=== PATIENT | female | born 1960 | race Caucasian/White ===

== ENCOUNTER → 2019-08-10 09:40 | Outpatient (BNVA) | payer MEDICARE, MEDICAID, SELFPAY | PROVIDERS: PCP Internal Medicine; Referring Provider Internal Medicine; Visit Provider Nurse Practitioner Adult Health | DX: G56.01 Carpal tunnel syndrome, right upper limb (principal); G56.02 Carpal tunnel syndrome, left upper limb | CPT/HCPCS: 95909; 99203; L3908 ==

== ENCOUNTER → 2022-11-27 02:54 | Outpatient (CLI) | payer MEDICARE, MEDICAID, SELFPAY ==
[2022-11-27] MEDS: Normal Saline Flush 10 ML SYR IVP (12:53)
[2022-11-27] MEDS: Gadoterate meglumine 20 ML VIAL IVP (12:53)
--- NOTE | 2022-11-27 13:15 | DI.MRI_ITS ---
Exam(s) MR BRAIN WO/W EXAM: MR BRAIN WO/W CLINICAL HISTORY: NEOPLASM BRONCHUS LLL C34.32 STAGING TECHNIQUE: Multiplanar multisequence MRI of the brain was performed. Both noninfused and contrast i nfused sequences were performed. IV Contrast injected was 13 cc Dotarem. COMPARISON: No exams were available for comparison FINDINGS: CEREBRAL PARENCHYMA: No evidence of intracranial hemorrhage, mass effect nor shift of midline structu re. No extraaxial fluid collections. Ventricles are not enlarged nor shifted. There is no significant focal signal abnormality in the cerebellar hemispheres nor within the alva, m idbrain, and thalami. There is no abnormal signal abnormality in the periventricular white matter. There is a small 4 mill imeter focus of signal abnormality in the lateral right subcortical white matter, this being a nonspe cific finding with no evidence of hemorrhage surrounding edema nor enhancement and no restricted diff usion. DWI: No areas of restricted diffusion to suggest acute ischemic event. SWI: No microhemorrhages evident. There are no ring enhancing lesions in the brain. There is no abnormal meningeal enhancement. PITUITARY GLAND: No mass nor parasellar abnormality. No obvious abnormality in the cavernous sinuses. FLOW VOIDS: The expected flow void are noted. No evidence of obvious aneurysm nor obvious vascular ma lformation. PARANASAL SINUSES: Some mucosal thickening noted in the right maxillary sinus. ORBITS: No obvious abnormal findings. IMPRESSION: 1. No evidence of metastatic lesions in the brain. No ring enhancing lesions nor abnormal meningeal enhancement. DATA REPOSITORY:
== END ==
PROVIDERS: PCP Internal Medicine; Visit Provider Radiology Radiation Oncology
DX: C34.32 Malignant neoplasm of lower lobe, left bronchus or lung (principal)
CPT/HCPCS: 70553

== ENCOUNTER 2022-12-29 04:19 | Outpatient (CLI) | payer MEDICARE, MEDICAID, SELFPAY ==
[2022-12-29 08:41] LABS: HCT 36.4 % (36.0-46.0); HGB 10.6 g/dL (11.2-15.7); MCH 21.4 pg (27.0-33.0); MCHC 29.1 % (32.0-36.0); MCV 73 fL (80-95); MPV 8.8 fL (8.0-11.0); Platelet Count 437 10^3/uL (130-400); RBC 4.96 10^6/uL (3.93-5.22); RDW 19.7 % (11.7-14.6); RDW-SD 51.8 fL; WBC 13.13 10^3/uL (4.4-10.8)
[2022-12-29 09:05] LABS: ALT 15 U/L (14-59); AST 20 U/L (15-37); Albumin 2.8 g/dL (3.4-5.0); Alkaline Phosphatase 122 U/L (46-116); Anion Gap 6.7 mmol/L (3-11); BUN 7 mg/dL (7-18); Bilirubin, Total 0.2 mg/dL (0.2-1.0); CO2 27.3 mmol/L (21.0-32.0); CREATININE 0.7 mg/dL (0.55-1.02); Calcium 9.7 mg/dL (8.5-10.1); Chloride 101 mmol/L (98-107); Estimated GFR 98.34 (mL/min/1.73m2); Glucose 90 mg/dL (74-106); Potassium 4.3 mmol/L (3.5-5.1); Sodium 135 mmol/L (136-145); Total Protein 8.3 g/dL (6.4-8.2)
[2022-12-29 09:09] LABS: Absolute Basophil Count 0.26 10^3/uL (0.0-0.2); Absolute Eosinophil Count 0.39 10^3/uL (0.0-0.7); Absolute Lymphocyte Count 3.55 10^3/uL (1.2-3.4); Absolute Monocyte Count 1.31 10^3/uL (0.1-0.8); Absolute Neutrophil Count 7.62 10^3/uL (1.2-6.7); Diff Comment Manual Differential
[2022-12-29 09:10] LABS: Anisocytosis 1+; Hypochromasia 1+; Microcytosis 1+
[2022-12-29 09:13] LABS: Poikilocytes 1+
== END 2022-12-29 04:20 | disposition home or self-care (01) ==
LOC: LBO 04:19
PROVIDERS: PCP Internal Medicine; Visit Provider Internal Medicine Medical Oncology
DX: C34.32 Malignant neoplasm of lower lobe, left bronchus or lung (principal)
CPT/HCPCS: 36415; 80053; 83735; 85025

== ENCOUNTER 2023-01-05 02:14 | Outpatient (CLI) | payer MEDICARE, MEDICAID, SELFPAY ==
[2023-01-05 10:56] LABS: Abs Immature Grans 0.07 10^3/uL (0.0-0.06); Absolute Eosinophil Count 0.24 10^3/uL (0.0-0.7); Absolute Monocyte Count 0.93 10^3/uL (0.1-0.8); Basophils % 1.2; Eosinophils % 2.1; HCT 35.4 % (36.0-46.0); HGB 10.6 g/dL (11.2-15.7); Immature Grans % 0.6; Lymphocytes % 23.2; MCH 21.5 pg (27.0-33.0); MCHC 29.9 % (32.0-36.0); MCV 72 fL (80-95); Monocytes % 8.3; Neutrophils % 64.6; Nucleated RBC 0.2 % (0.0-0.3); Platelet Count 345 10^3/uL (130-400); RBC 4.92 10^6/uL (3.93-5.22); RDW 19.9 % (11.7-14.6); WBC 11.22 10^3/uL (4.4-10.8)
[2023-01-05 10:58] LABS: Absolute Basophil Count 0.13 10^3/uL (0.0-0.2); Absolute Neutrophil Count 7.25 10^3/uL (1.2-6.7)
[2023-01-05 11:13] LABS: ALT 21 U/L (14-59); AST 25 U/L (15-37); Albumin 2.9 g/dL (3.4-5.0); Alkaline Phosphatase 119 U/L (46-116); Anion Gap 4.5 mmol/L (3-11); BUN 8 mg/dL (7-18); Bilirubin, Total 0.3 mg/dL (0.2-1.0); CO2 28.5 mmol/L (21.0-32.0); CREATININE 0.7 mg/dL (0.55-1.02); Calcium 9.9 mg/dL (8.5-10.1); Chloride 97 mmol/L (98-107); Diff Comment RBC Morph Reviewed; Estimated GFR 98.34 (mL/min/1.73m2); Glucose 102 mg/dL (74-106); Hypochromasia 1+; Magnesium 1.8 mg/dL (1.8-2.4); Microcytosis 2+; Potassium 4.2 mmol/L (3.5-5.1); Sodium 130 mmol/L (136-145); Total Protein 8.1 g/dL (6.4-8.2)
== END 2023-01-05 02:15 | disposition home or self-care (01) ==
LOC: LBO 02:14
PROVIDERS: PCP Internal Medicine; Visit Provider Internal Medicine Medical Oncology
DX: C34.32 Malignant neoplasm of lower lobe, left bronchus or lung (principal)
CPT/HCPCS: 36415; 80053; 83735; 85025

== ENCOUNTER 2023-01-12 03:57 | Outpatient (CLI) | payer MEDICARE, MEDICAID, SELFPAY ==
[2023-01-12 09:00] LABS: Abs Immature Grans 0.05 10^3/uL (0.0-0.06); Absolute Basophil Count 0.11 10^3/uL (0.0-0.2); Absolute Eosinophil Count 0.19 10^3/uL (0.0-0.7); Absolute Lymphocyte Count 1.37 10^3/uL (1.2-3.4); Absolute Monocyte Count 0.87 10^3/uL (0.1-0.8); Basophils % 1.3; Eosinophils % 2.2; HCT 36.2 % (36.0-46.0); HGB 10.7 g/dL (11.2-15.7); Immature Grans % 0.6; Lymphocytes % 15.6; MCH 21.6 pg (27.0-33.0); MCHC 29.6 % (32.0-36.0); MCV 73 fL (80-95); MPV 8.9 fL (8.0-11.0); Monocytes % 9.9; Neutrophils % 70.4; Nucleated RBC 0.2 % (0.0-0.3); Platelet Count 338 10^3/uL (130-400); RBC 4.96 10^6/uL (3.93-5.22); RDW-SD 50.5 fL; WBC 8.79 10^3/uL (4.4-10.8)
[2023-01-12 09:32] LABS: ALT 26 U/L (14-59); AST 19 U/L (15-37); Albumin 2.7 g/dL (3.4-5.0); Alkaline Phosphatase 116 U/L (46-116); Anion Gap 7.3 mmol/L (3-11); BUN 7 mg/dL (7-18); Bilirubin, Total 0.2 mg/dL (0.2-1.0); CO2 25.7 mmol/L (21.0-32.0); CREATININE 0.7 mg/dL (0.55-1.02); Calcium 9.6 mg/dL (8.5-10.1); Chloride 100 mmol/L (98-107); Estimated GFR 98.34 (mL/min/1.73m2); Glucose 156 mg/dL (74-106); Magnesium 1.7 mg/dL (1.8-2.4); Potassium 3.7 mmol/L (3.5-5.1); Sodium 133 mmol/L (136-145); Total Protein 7.6 g/dL (6.4-8.2)
[2023-01-12 09:52] LABS: Anisocytosis 2+; Diff Comment RBC Morph Reviewed; Microcytosis 2+
== END 2023-01-12 03:58 | disposition home or self-care (01) ==
LOC: LBO 03:57
PROVIDERS: PCP Internal Medicine; Visit Provider Internal Medicine Medical Oncology
DX: C34.32 Malignant neoplasm of lower lobe, left bronchus or lung (principal)
CPT/HCPCS: 36415; 80053; 83735; 85025

== ENCOUNTER 2023-01-19 04:25 | Outpatient (CLI) | payer MEDICARE, MEDICAID, SELFPAY ==
[2023-01-19 10:36] LABS: Abs Immature Grans 0.05 10^3/uL (0.0-0.06); Absolute Basophil Count 0.09 10^3/uL (0.0-0.2); Absolute Eosinophil Count 0.07 10^3/uL (0.0-0.7); Absolute Lymphocyte Count 1.07 10^3/uL (1.2-3.4); Absolute Monocyte Count 0.71 10^3/uL (0.1-0.8); Absolute Neutrophil Count 4.77 10^3/uL (1.2-6.7); Basophils % 1.3; HCT 35.2 % (36.0-46.0); HGB 10.8 g/dL (11.2-15.7); Immature Grans % 0.7; Lymphocytes % 15.8; MCH 22.1 pg (27.0-33.0); MCHC 30.7 % (32.0-36.0); MCV 72 fL (80-95); MPV 8.7 fL (8.0-11.0); Monocytes % 10.5; Neutrophils % 70.7; Nucleated RBC 0.3 % (0.0-0.3); Platelet Count 291 10^3/uL (130-400); RBC 4.88 10^6/uL (3.93-5.22); RDW 22.1 % (11.7-14.6); RDW-SD 52.9 fL; WBC 6.76 10^3/uL (4.4-10.8)
[2023-01-19 10:51] LABS: ALT 23 U/L (14-59); AST 18 U/L (15-37); Albumin 2.8 g/dL (3.4-5.0); Alkaline Phosphatase 115 U/L (46-116); Anion Gap 8.3 mmol/L (3-11); BUN 13 mg/dL (7-18); Bilirubin, Total 0.2 mg/dL (0.2-1.0); CO2 25.7 mmol/L (21.0-32.0); CREATININE 0.7 mg/dL (0.55-1.02); Calcium 9.7 mg/dL (8.5-10.1); Chloride 100 mmol/L (98-107); Estimated GFR 98.34 (mL/min/1.73m2); Glucose 125 mg/dL (74-106); Magnesium 1.6 mg/dL (1.8-2.4); Potassium 4.1 mmol/L (3.5-5.1); Sodium 134 mmol/L (136-145); Total Protein 7.5 g/dL (6.4-8.2)
[2023-01-19 11:07] LABS: Anisocytosis 1+; Hypochromasia 1+; Microcytosis 1+
== END 2023-01-19 04:26 | disposition home or self-care (01) ==
LOC: LBO 04:25
PROVIDERS: PCP Internal Medicine; Visit Provider Internal Medicine Medical Oncology
DX: C34.32 Malignant neoplasm of lower lobe, left bronchus or lung (principal)
CPT/HCPCS: 36415; 80053; 83735; 85025

== ENCOUNTER 2023-01-26 04:40 | Outpatient (CLI) | payer MEDICARE, MEDICAID, SELFPAY ==
[2023-01-26 10:51] LABS: Abs Immature Grans 0.03 10^3/uL (0.0-0.06); Absolute Eosinophil Count 0.08 10^3/uL (0.0-0.7); Absolute Monocyte Count 0.66 10^3/uL (0.1-0.8); Absolute Neutrophil Count 4.21 10^3/uL (1.2-6.7); Basophils % 1.7; Eosinophils % 1.3; HCT 35.7 % (36.0-46.0); HGB 11.2 g/dL (11.2-15.7); Immature Grans % 0.5; Lymphocytes % 15.1; MCH 22.6 pg (27.0-33.0); MCHC 31.4 % (32.0-36.0); MCV 72 fL (80-95); MPV 8.9 fL (8.0-11.0); Neutrophils % 70.4; Platelet Count 245 10^3/uL (130-400); RBC 4.96 10^6/uL (3.93-5.22); RDW 23.6 % (11.7-14.6); RDW-SD 54.4 fL; WBC 5.98 10^3/uL (4.4-10.8)
[2023-01-26 11:03] LABS: Anisocytosis 2+; Diff Comment RBC Morph Reviewed; Microcytosis 2+
[2023-01-26 11:06] LABS: ALT 26 U/L (14-59); AST 25 U/L (15-37); Albumin 2.9 g/dL (3.4-5.0); Alkaline Phosphatase 117 U/L (46-116); Anion Gap 7.9 mmol/L (3-11); BUN 9 mg/dL (7-18); Bilirubin, Total 0.1 mg/dL (0.2-1.0); CO2 26.1 mmol/L (21.0-32.0); CREATININE 0.7 mg/dL (0.55-1.02); Calcium 9.8 mg/dL (8.5-10.1); Chloride 100 mmol/L (98-107); Estimated GFR 98.34 (mL/min/1.73m2); Glucose 159 mg/dL (74-106); Magnesium 1.8 mg/dL (1.8-2.4); Potassium 3.8 mmol/L (3.5-5.1); Sodium 134 mmol/L (136-145); Total Protein 7.6 g/dL (6.4-8.2)
== END 2023-01-26 04:41 | disposition home or self-care (01) ==
LOC: LBO 04:40
PROVIDERS: PCP Internal Medicine; Visit Provider Internal Medicine Medical Oncology
DX: C34.32 Malignant neoplasm of lower lobe, left bronchus or lung (principal)
CPT/HCPCS: 36415; 80053; 83735; 85025

== ENCOUNTER 2023-02-02 03:45 | Outpatient (CLI) | payer MEDICARE, MEDICAID, SELFPAY ==
[2023-02-02 10:38] LABS: Abs Immature Grans 0.02 10^3/uL (0.0-0.06); Absolute Basophil Count 0.05 10^3/uL (0.0-0.2); Absolute Eosinophil Count 0.07 10^3/uL (0.0-0.7); Absolute Lymphocyte Count 0.59 10^3/uL (1.2-3.4); Absolute Neutrophil Count 4.12 10^3/uL (1.2-6.7); Eosinophils % 1.3; HCT 34.3 % (36.0-46.0); HGB 10.7 g/dL (11.2-15.7); Immature Grans % 0.4; Lymphocytes % 11.2; MCH 22.4 pg (27.0-33.0); MCHC 31.2 % (32.0-36.0); MCV 72 fL (80-95); MPV 9.3 fL (8.0-11.0); Monocytes % 7.6; Neutrophils % 78.5; Platelet Count 164 10^3/uL (130-400); RBC 4.77 10^6/uL (3.93-5.22); RDW 24.7 % (11.7-14.6); RDW-SD 59.3 fL; WBC 5.25 10^3/uL (4.4-10.8)
[2023-02-02 10:53] LABS: ALT 29 U/L (14-59); AST 25 U/L (15-37); Albumin 2.7 g/dL (3.4-5.0); Alkaline Phosphatase 120 U/L (46-116); Anion Gap 9.1 mmol/L (3-11); BUN 6 mg/dL (7-18); Bilirubin, Total 0.2 mg/dL (0.2-1.0); CO2 24.9 mmol/L (21.0-32.0); CREATININE 0.7 mg/dL (0.55-1.02); Calcium 9.7 mg/dL (8.5-10.1); Chloride 101 mmol/L (98-107); Estimated GFR 98.34 (mL/min/1.73m2); Glucose 136 mg/dL (74-106); Magnesium 1.8 mg/dL (1.8-2.4); Potassium 3.6 mmol/L (3.5-5.1); Sodium 135 mmol/L (136-145); Total Protein 7.4 g/dL (6.4-8.2)
== END 2023-02-02 03:46 | disposition home or self-care (01) ==
PROVIDERS: PCP Internal Medicine; Visit Provider Internal Medicine Medical Oncology
DX: C34.32 Malignant neoplasm of lower lobe, left bronchus or lung (principal)
CPT/HCPCS: 36415; 80053; 83735; 85025

== ENCOUNTER 2023-02-23 03:46 | Outpatient (CLI) | payer MEDICARE, MEDICAID, SELFPAY ==
[2023-02-23 07:57] LABS: Abs Immature Grans 0.03 10^3/uL (0.0-0.06); Absolute Basophil Count 0.08 10^3/uL (0.0-0.2); Absolute Eosinophil Count 0.12 10^3/uL (0.0-0.7); Absolute Lymphocyte Count 1.17 10^3/uL (1.2-3.4); Absolute Monocyte Count 1.13 10^3/uL (0.1-0.8); Absolute Neutrophil Count 6.14 10^3/uL (1.2-6.7); Basophils % 0.9; Eosinophils % 1.4; HCT 36.7 % (36.0-46.0); HGB 11.6 g/dL (11.2-15.7); Immature Grans % 0.3; Lymphocytes % 13.5; MCHC 31.6 % (32.0-36.0); MCV 73 fL (80-95); MPV 8.6 fL (8.0-11.0); Neutrophils % 70.9; Platelet Count 344 10^3/uL (130-400); RBC 5.05 10^6/uL (3.93-5.22); RDW 27.5 % (11.7-14.6); RDW-SD 69.6 fL; WBC 8.67 10^3/uL (4.4-10.8)
[2023-02-23 08:18] LABS: ALT 29 U/L (14-59); AST 31 U/L (15-37); Albumin 2.9 g/dL (3.4-5.0); Alkaline Phosphatase 139 U/L (46-116); Anion Gap 9.1 mmol/L (3-11); BUN 8 mg/dL (7-18); Bilirubin, Total 0.3 mg/dL (0.2-1.0); CO2 25.9 mmol/L (21.0-32.0); CREATININE 0.9 mg/dL (0.55-1.02); Calcium 10.4 mg/dL (8.5-10.1); Chloride 95 mmol/L (98-107); Estimated GFR 72.73 (mL/min/1.73m2); Glucose 164 mg/dL (74-106); Magnesium 1.9 mg/dL (1.8-2.4); Potassium 4.1 mmol/L (3.5-5.1); Sodium 130 mmol/L (136-145); Total Protein 8.2 g/dL (6.4-8.2)
[2023-02-23 08:57] LABS: Anisocytosis 1+; Hypochromasia 1+; Microcytosis 1+; Polychromasia Present
[2023-02-23 09:49] LABS: FREE T4 1.19 ng/dL (0.76-1.46); TSH 4.38 uIU/mL (0.36-3.74)
== END 2023-02-23 03:47 | disposition home or self-care (01) ==
LOC: LBO 03:46
PROVIDERS: PCP Internal Medicine; Visit Provider Internal Medicine Medical Oncology
DX: C34.32 Malignant neoplasm of lower lobe, left bronchus or lung (principal); Z79.899 Other long term (current) drug therapy
CPT/HCPCS: 36415; 80053; 83735; 84439; 84443; 85025

== ENCOUNTER 2023-03-11 03:09 | Outpatient (CLI) | payer MEDICARE, MEDICAID, SELFPAY ==
[2023-03-11 08:08] LABS: Abs Immature Grans 0.04 10^3/uL (0.0-0.06); Absolute Basophil Count 0.11 10^3/uL (0.0-0.2); Absolute Eosinophil Count 0.27 10^3/uL (0.0-0.7); Absolute Monocyte Count 1.08 10^3/uL (0.1-0.8); Basophils % 1.1; Eosinophils % 2.7; HCT 35.5 % (36.0-46.0); HGB 11.1 g/dL (11.2-15.7); Immature Grans % 0.4; MCH 23.3 pg (27.0-33.0); MCHC 31.3 % (32.0-36.0); MCV 74 fL (80-95); MPV 8.7 fL (8.0-11.0); Monocytes % 10.8; Platelet Count 314 10^3/uL (130-400); RBC 4.77 10^6/uL (3.93-5.22); RDW 28.4 % (11.7-14.6); RDW-SD 74.1 fL
[2023-03-11 08:37] LABS: Anisocytosis 2+; Basophilic Stippling Present; Diff Comment RBC Morph Reviewed; Howell-Jolly Bodies Present; Microcytosis 1+; Polychromasia Present
[2023-03-11 08:38] LABS: ALT 25 U/L (14-59); AST 29 U/L (15-37); Albumin 2.7 g/dL (3.4-5.0); Alkaline Phosphatase 138 U/L (46-116); Anion Gap 7.9 mmol/L (3-11); BUN 9 mg/dL (7-18); Bilirubin, Total 0.3 mg/dL (0.2-1.0); CO2 26.1 mmol/L (21.0-32.0); CREATININE 0.8 mg/dL (0.55-1.02); Calcium 9.7 mg/dL (8.5-10.1); Chloride 102 mmol/L (98-107); Estimated GFR 83.78 (mL/min/1.73m2); Glucose 110 mg/dL (74-106); Magnesium 2.1 mg/dL (1.8-2.4); Poikilocytes 1+; Potassium 3.7 mmol/L (3.5-5.1); Sodium 136 mmol/L (136-145); TSH 3.66 uIU/mL (0.36-3.74); Total Protein 7.4 g/dL (6.4-8.2)
== END 2023-03-11 03:10 | disposition home or self-care (01) ==
LOC: LBO 03:09
PROVIDERS: PCP Internal Medicine; Visit Provider Internal Medicine Medical Oncology
DX: Z79.899 Other long term (current) drug therapy (principal); C34.32 Malignant neoplasm of lower lobe, left bronchus or lung
CPT/HCPCS: 36415; 80053; 83735; 84439; 84443; 85025

== ENCOUNTER 2023-04-08 13:43 | Outpatient (CLI) | payer MEDICARE, MEDICAID, SELFPAY ==
[2023-04-08 13:54] LABS: Abs Immature Grans 0.07 10^3/uL (0.0-0.06); Absolute Basophil Count 0.14 10^3/uL (0.0-0.2); Absolute Monocyte Count 1.32 10^3/uL (0.1-0.8); Absolute Neutrophil Count 10.63 10^3/uL (1.2-6.7); Basophils % 0.9; Eosinophils % 1.3; HCT 32.7 % (36.0-46.0); HGB 9.8 g/dL (11.2-15.7); Immature Grans % 0.5; Lymphocytes % 18.6; MCH 22.5 pg (27.0-33.0); MCV 75 fL (80-95); MPV 8.5 fL (8.0-11.0); Monocytes % 8.7; Nucleated RBC 0.2 % (0.0-0.3); Platelet Count 413 10^3/uL (130-400); RBC 4.36 10^6/uL (3.93-5.22); RDW 24.2 % (11.7-14.6); WBC 15.18 10^3/uL (4.4-10.8)
[2023-04-08 13:56] LABS: Absolute Lymphocyte Count 2.82 10^3/uL (1.2-3.4)
[2023-04-08 14:05] LABS: Diff Comment RBC Morph Reviewed
[2023-04-08 14:06] LABS: Anisocytosis 2+
[2023-04-08 14:17] LABS: ALT 21 U/L (14-59); AST 20 U/L (15-37); Albumin 2.6 g/dL (3.4-5.0); Alkaline Phosphatase 125 U/L (46-116); Anion Gap 8.2 mmol/L (3-11); BUN 10 mg/dL (7-18); Bilirubin, Total 0.3 mg/dL (0.2-1.0); CO2 25.8 mmol/L (21.0-32.0); CREATININE 0.8 mg/dL (0.55-1.02); Calcium 9.9 mg/dL (8.5-10.1); Chloride 101 mmol/L (98-107); Estimated GFR 83.78 (mL/min/1.73m2); FREE T4 1.05 ng/dL (0.76-1.46); Glucose 117 mg/dL (74-106); Magnesium 1.9 mg/dL (1.8-2.4); Potassium 3.6 mmol/L (3.5-5.1); Sodium 135 mmol/L (136-145); TSH 2.49 uIU/mL (0.36-3.74); Total Protein 7.9 g/dL (6.4-8.2)
== END 2023-04-08 13:44 | disposition home or self-care (01) ==
LOC: LBO 13:43
PROVIDERS: PCP Internal Medicine; Visit Provider Internal Medicine Medical Oncology
DX: C34.32 Malignant neoplasm of lower lobe, left bronchus or lung (principal); Z79.899 Other long term (current) drug therapy
CPT/HCPCS: 36415; 80053; 83735; 84439; 84443; 85025

== ENCOUNTER 2023-05-13 04:21 | Outpatient (CLI) | payer MEDICARE, MEDICAID, SELFPAY ==
[2023-05-13 09:46] LABS: Abs Immature Grans 0.11 10^3/uL (0.0-0.06); Absolute Eosinophil Count 0.31 10^3/uL (0.0-0.7); Absolute Lymphocyte Count 1.95 10^3/uL (1.2-3.4); Absolute Neutrophil Count 10.87 10^3/uL (1.2-6.7); Basophils % 0.7; Eosinophils % 2.1; HCT 28.2 % (36.0-46.0); HGB 8.3 g/dL (11.2-15.7); Immature Grans % 0.7; Lymphocytes % 13.2; MCH 20.5 pg (27.0-33.0); MCHC 29.4 % (32.0-36.0); MCV 70 fL (80-95); MPV 8.9 fL (8.0-11.0); Monocytes % 9.9; Neutrophils % 73.4; Nucleated RBC 0.1 % (0.0-0.3); Platelet Count 360 10^3/uL (130-400); RBC 4.04 10^6/uL (3.93-5.22); RDW 20.4 % (11.7-14.6); RDW-SD 49.4 fL; WBC 14.81 10^3/uL (4.4-10.8)
[2023-05-13 09:47] LABS: Absolute Monocyte Count 1.47 10^3/uL (0.1-0.8)
[2023-05-13 10:09] LABS: Anisocytosis 2+; Diff Comment Diff Reviewed; Hypochromasia 2+; Microcytosis 1+; Poikilocytes 2+; Polychromasia Present
[2023-05-13 10:34] LABS: ALT 19 U/L (14-59); AST 14 U/L (15-37); Albumin 2.3 g/dL (3.4-5.0); Alkaline Phosphatase 118 U/L (46-116); Anion Gap 7.7 mmol/L (3-11); BUN 11 mg/dL (7-18); Bilirubin, Total 0.3 mg/dL (0.2-1.0); CO2 27.3 mmol/L (21.0-32.0); CREATININE 0.6 mg/dL (0.55-1.02); Calcium 9.4 mg/dL (8.5-10.1); Chloride 103 mmol/L (98-107); Estimated GFR 101.42 (mL/min/1.73m2); FREE T4 1.12 ng/dL (0.76-1.46); Glucose 118 mg/dL (74-106); Potassium 3.4 mmol/L (3.5-5.1); Sodium 138 mmol/L (136-145); TSH 3.08 uIU/mL (0.36-3.74); Total Protein 6.8 g/dL (6.4-8.2)
== END 2023-05-13 04:22 | disposition home or self-care (01) ==
LOC: LBO 04:21
PROVIDERS: PCP Internal Medicine; Visit Provider Internal Medicine Medical Oncology
DX: C34.32 Malignant neoplasm of lower lobe, left bronchus or lung (principal); Z79.899 Other long term (current) drug therapy
CPT/HCPCS: 36415; 80053; 83735; 84439; 84443; 85025

== ENCOUNTER 2023-05-25 05:00 | Outpatient (CLI) | payer MEDICARE, MEDICAID, SELFPAY ==
[2023-05-25 08:51] LABS: Abs Immature Grans 0.13 10^3/uL (0.0-0.06); Absolute Basophil Count 0.08 10^3/uL (0.0-0.2); Absolute Eosinophil Count 0.18 10^3/uL (0.0-0.7); Absolute Monocyte Count 1.28 10^3/uL (0.1-0.8); Basophils % 0.4; Eosinophils % 0.9; HCT 31.7 % (36.0-46.0); HGB 9.4 g/dL (11.2-15.7); Immature Grans % 0.7; Lymphocytes % 13.8; MCHC 29.7 % (32.0-36.0); MCV 67 fL (80-95); MPV 8.7 fL (8.0-11.0); Monocytes % 6.5; Neutrophils % 77.7; Nucleated RBC 0.1 % (0.0-0.3); RBC 4.71 10^6/uL (3.93-5.22); RDW-SD 48.6 fL; WBC 19.63 10^3/uL (4.4-10.8)
[2023-05-25 08:54] LABS: Absolute Lymphocyte Count 2.71 10^3/uL (1.2-3.4); Absolute Neutrophil Count 15.25 10^3/uL (1.2-6.7)
[2023-05-25 09:16] LABS: ALT 24 U/L (14-59); AST 13 U/L (15-37); Albumin 2.9 g/dL (3.4-5.0); Alkaline Phosphatase 111 U/L (46-116); Anion Gap 10.4 mmol/L (3-11); BUN 20 mg/dL (7-18); Bilirubin, Total 0.2 mg/dL (0.2-1.0); CO2 26.6 mmol/L (21.0-32.0); CREATININE 0.8 mg/dL (0.55-1.02); Calcium 9.6 mg/dL (8.5-10.1); Chloride 102 mmol/L (98-107); Estimated GFR 83.26 (mL/min/1.73m2); FREE T4 0.94 ng/dL (0.76-1.46); Glucose 127 mg/dL (74-106); Magnesium 2.3 mg/dL (1.8-2.4); Potassium 3.4 mmol/L (3.5-5.1); Sodium 139 mmol/L (136-145); TSH 6.78 uIU/mL (0.36-3.74); Total Protein 7.2 g/dL (6.4-8.2)
[2023-05-25 09:32] LABS: Anisocytosis 2+; Diff Comment Diff Reviewed
[2023-05-25 09:33] LABS: Microcytosis 1+; Schistocytes 1+
[2023-05-25 09:34] LABS: Platelet Count 377 10^3/uL (130-400); Poikilocytes 2+
== END 2023-05-25 05:01 | disposition home or self-care (01) ==
LOC: LBO 05:00
PROVIDERS: PCP Internal Medicine; Visit Provider Internal Medicine Medical Oncology
DX: Z79.899 Other long term (current) drug therapy (principal); C34.32 Malignant neoplasm of lower lobe, left bronchus or lung
CPT/HCPCS: 36415; 80053; 83735; 84439; 84443; 85025

== ENCOUNTER 2023-06-24 04:03 | Outpatient (CLI) | payer MEDICARE, MEDICAID, SELFPAY ==
[2023-06-24 12:57] LABS: Abs Immature Grans 0.03 10^3/uL (0.0-0.06); Absolute Basophil Count 0.14 10^3/uL (0.0-0.2); Absolute Monocyte Count 1.46 10^3/uL (0.1-0.8); Basophils % 1.2; Eosinophils % 1.8; HCT 29.2 % (36.0-46.0); HGB 8.5 g/dL (11.2-15.7); Immature Grans % 0.3; Lymphocytes % 24.5; MCH 18.5 pg (27.0-33.0); MCHC 29.1 % (32.0-36.0); MCV 64 fL (80-95); MPV 8.8 fL (8.0-11.0); Monocytes % 12.8; Neutrophils % 59.4; Nucleated RBC 0.3 % (0.0-0.3); Platelet Count 462 10^3/uL (130-400); RDW 21.6 % (11.7-14.6); RDW-SD 46.9 fL; WBC 11.41 10^3/uL (4.4-10.8)
[2023-06-24 12:58] LABS: Absolute Eosinophil Count 0.21 10^3/uL (0.0-0.7); Absolute Neutrophil Count 6.78 10^3/uL (1.2-6.7)
[2023-06-24 13:05] LABS: Anisocytosis 2+; Diff Comment RBC Morph Reviewed; Hypochromasia 1+; Microcytosis 2+
[2023-06-24 13:06] LABS: Poikilocytes 2+
[2023-06-24 13:21] LABS: ALT 20 U/L (14-59); AST 24 U/L (15-37); Albumin 2.9 g/dL (3.4-5.0); Alkaline Phosphatase 126 U/L (46-116); Anion Gap 9.6 mmol/L (3-11); BUN 7 mg/dL (7-18); Bilirubin, Total 0.2 mg/dL (0.2-1.0); CO2 25.4 mmol/L (21.0-32.0); CREATININE 0.7 mg/dL (0.55-1.02); Calcium 9.7 mg/dL (8.5-10.1); Chloride 101 mmol/L (98-107); Estimated GFR 97.72 (mL/min/1.73m2); FREE T4 0.94 ng/dL (0.76-1.46); Glucose 93 mg/dL (74-106); Magnesium 2.3 mg/dL (1.8-2.4); Potassium 4.4 mmol/L (3.5-5.1); Sodium 136 mmol/L (136-145); TSH 4.94 uIU/Ml (0.36-3.74); Total Protein 7.7 g/dL (6.4-8.2)
== END 2023-06-24 04:04 | disposition home or self-care (01) ==
LOC: LBO 04:03
PROVIDERS: PCP Internal Medicine; Visit Provider Internal Medicine Medical Oncology
DX: Z79.899 Other long term (current) drug therapy (principal)
CPT/HCPCS: 36415; 80053; 83735; 84439; 84443; 85025

== ENCOUNTER 2023-07-22 05:38 | Outpatient (CLI) | payer MEDICARE, MEDICAID, SELFPAY ==
[2023-07-22 07:55] LABS: Abs Immature Grans 0.09 10^3/uL (0.0-0.06); Absolute Eosinophil Count 0.02 10^3/uL (0.0-0.7); Absolute Lymphocyte Count 2.18 10^3/uL (1.2-3.4); Basophils % 0.4; Eosinophils % 0.1; HGB 7.7 g/dL (11.2-15.7); Immature Grans % 0.5; Lymphocytes % 10.9; MCH 17.8 pg (27.0-33.0); MCHC 28.5 % (32.0-36.0); MCV 62 fL (80-95); MPV 8.9 fL (8.0-11.0); Neutrophils % 79.1; Nucleated RBC 0.2 % (0.0-0.3); Platelet Count 462 10^3/uL (130-400); RBC 4.33 10^6/uL (3.93-5.22); RDW 22.6 % (11.7-14.6); RDW-SD 48.1 fL
[2023-07-22 07:58] LABS: Absolute Basophil Count 0.08 10^3/uL (0.0-0.2); Absolute Neutrophil Count 15.82 10^3/uL (1.2-6.7)
[2023-07-22 08:19] LABS: ALT 21 U/L (14-59); AST 15 U/L (15-37); Albumin 3.1 g/dL (3.4-5.0); Alkaline Phosphatase 106 U/L (46-116); Anion Gap 9.8 mmol/L (3-11); BUN 17 mg/dL (7-18); Bilirubin, Total 0.3 mg/dL (0.2-1.0); CO2 26.2 mmol/L (21.0-32.0); CREATININE 0.8 mg/dL (0.55-1.02); Calcium 9.9 mg/dL (8.5-10.1); Chloride 101 mmol/L (98-107); Estimated GFR 83.26 (mL/min/1.73m2); Glucose 118 mg/dL (74-106); Potassium 3.7 mmol/L (3.5-5.1); Sodium 137 mmol/L (136-145); TSH 2.11 uIU/Ml (0.36-3.74); Total Protein 7.7 g/dL (6.4-8.2)
[2023-07-22 08:41] LABS: Anisocytosis 1+; Diff Comment RBC Morph Reviewed; Hypochromasia 1+; Microcytosis 1+
[2023-07-22 08:42] LABS: Poikilocytes 1+
[2023-07-22 10:08] LABS: Reticulocyte 1.6 % (0.5-2.4)
[2023-07-22 10:56] LABS: Ferritin 25 ng/mL (8-252); Folate 4.2 ng/mL (8.6-20.0); Vitamin B12 458 pg/mL (193-986)
== END 2023-07-22 05:39 | disposition home or self-care (01) ==
LOC: LBO 05:38
PROVIDERS: PCP Internal Medicine; Visit Provider Internal Medicine Medical Oncology
DX: Z79.899 Other long term (current) drug therapy (principal); C34.32 Malignant neoplasm of lower lobe, left bronchus or lung
CPT/HCPCS: 36415; 80053; 82607; 82728; 82746; 83735; 84439; 84443; 85025; 85045

== ENCOUNTER 2023-07-22 10:53 | Outpatient (REF) | payer MEDICARE, MEDICAID, SELFPAY ==
[2023-07-22 11:19] LABS: Iron 8 ug/dL (50-170); Total Iron Binding Capacity 462 ug/dL (250-450); Transferrin Sat 2 % (15-50)
== END 2023-07-22 10:54 | disposition home or self-care (01) ==
LOC: LBN 10:53
PROVIDERS: PCP Internal Medicine; Visit Provider Nurse Practitioner Family
DX: D64.9 Anemia, unspecified (principal)
CPT/HCPCS: 83540; 83550

== ENCOUNTER 2023-08-17 05:20 | Outpatient (CLI) | payer MEDICARE, MEDICAID, SELFPAY ==
[2023-08-17 11:36] LABS: Abs Immature Grans 0.04 10^3/uL (0.0-0.06); Absolute Basophil Count 0.15 10^3/uL (0.0-0.2); Absolute Eosinophil Count 0.26 10^3/uL (0.0-0.7); Absolute Lymphocyte Count 3.01 10^3/uL (1.2-3.4); Basophils % 1.2 %; Eosinophils % 2.1 %; HCT 29.5 % (36.0-46.0); HGB 8.4 g/dL (11.2-15.7); Immature Grans % 0.3 %; Lymphocytes % 24.1 %; MCH 18.4 pg (27.0-33.0); MCHC 28.5 % (32.0-36.0); MCV 65 fL (80-95); Monocytes % 11.8 %; Neutrophils % 60.5 %; Platelet Count 387 10^3/uL (130-400); RBC 4.56 10^6/uL (3.93-5.22); RDW 27.2 % (11.7-14.6); RDW-SD 60.9 fL; WBC 12.51 10^3/uL (4.4-10.8)
[2023-08-17 11:38] LABS: Absolute Monocyte Count 1.48 10^3/uL (0.1-0.8); Absolute Neutrophil Count 7.57 10^3/uL (1.2-6.7)
[2023-08-17 11:49] LABS: Anisocytosis 2+; Diff Comment Diff Reviewed; Hypochromasia 1+; Microcytosis 2+
[2023-08-17 11:50] LABS: Poikilocytes 2+
[2023-08-17 12:10] LABS: ALT 16 U/L (14-59); AST 17 U/L (15-37); Albumin 3.2 g/dL (3.4-5.0); Alkaline Phosphatase 123 U/L (46-116); Anion Gap 10.1 mmol/L (3-11); BUN 11 mg/dL (7-18); Bilirubin, Total 0.3 mg/dL (0.2-1.0); CO2 25.9 mmol/L (21.0-32.0); CREATININE 0.7 mg/dL (0.55-1.02); Calcium 9.8 mg/dL (8.5-10.1); Chloride 102 mmol/L (98-107); Estimated GFR 97.72 (mL/min/1.73m2); FREE T4 0.88 ng/dL (0.76-1.46); Glucose 95 mg/dL (74-106); Potassium 4.1 mmol/L (3.5-5.1); Sodium 138 mmol/L (136-145); TSH 4.24 uIU/Ml (0.36-3.74); Total Protein 7.5 g/dL (6.4-8.2)
== END 2023-08-17 05:21 | disposition home or self-care (01) ==
LOC: LBO 05:20
PROVIDERS: PCP Internal Medicine; Visit Provider Internal Medicine Medical Oncology
DX: Z79.899 Other long term (current) drug therapy (principal); C34.32 Malignant neoplasm of lower lobe, left bronchus or lung
CPT/HCPCS: 36415; 80053; 83735; 84439; 84443; 85025

== ENCOUNTER 2023-09-14 04:54 | Outpatient (CLI) | payer MEDICARE, MEDICAID, SELFPAY ==
[2023-09-14 10:07] LABS: Abs Immature Grans 0.06 10^3/uL (0.0-0.06); Absolute Basophil Count 0.16 10^3/uL (0.0-0.2); Absolute Eosinophil Count 0.29 10^3/uL (0.0-0.7); Absolute Lymphocyte Count 2.93 10^3/uL (1.2-3.4); Absolute Monocyte Count 1.32 10^3/uL (0.1-0.8); Basophils % 1.3 %; Eosinophils % 2.4 %; HCT 36.3 % (36.0-46.0); Immature Grans % 0.5 %; Lymphocytes % 24.5 %; MCH 22.1 pg (27.0-33.0); MCHC 30.3 % (32.0-36.0); MCV 73 fL (80-95); MPV 8.4 fL (8.0-11.0); Neutrophils % 60.3 %; Platelet Count 351 10^3/uL (130-400); RBC 4.97 10^6/uL (3.93-5.22); RDW 33.7 % (11.7-14.6); RDW-SD 82.4 fL; WBC 11.97 10^3/uL (4.4-10.8)
[2023-09-14 10:10] LABS: Absolute Neutrophil Count 7.22 10^3/uL (1.2-6.7)
[2023-09-14 10:20] LABS: Anisocytosis 2+; Diff Comment RBC Morph Reviewed; Microcytosis 1+; Poikilocytes 1+
[2023-09-14 10:32] LABS: ALT 21 U/L (14-59); AST 17 U/L (15-37); Albumin 3.4 g/dL (3.4-5.0); Alkaline Phosphatase 126 U/L (46-116); Anion Gap 8.4 mmol/L (3-11); BUN 9 mg/dL (7-18); Bilirubin, Total 0.4 mg/dL (0.2-1.0); CO2 26.6 mmol/L (21.0-32.0); CREATININE 0.6 mg/dL (0.55-1.02); Calcium 9.9 mg/dL (8.5-10.1); Chloride 97 mmol/L (98-107); Estimated GFR 101.42 (mL/min/1.73m2); FREE T4 0.82 ng/dL (0.76-1.46); Glucose 96 mg/dL (74-106); Magnesium 1.9 mg/dL (1.8-2.4); Sodium 132 mmol/L (136-145); TSH 2.84 uIU/Ml (0.36-3.74); Total Protein 7.7 g/dL (6.4-8.2)
== END 2023-09-14 04:55 | disposition home or self-care (01) ==
LOC: LBO 04:54
PROVIDERS: PCP Internal Medicine; Visit Provider Internal Medicine Medical Oncology
DX: Z79.899 Other long term (current) drug therapy (principal)
CPT/HCPCS: 36415; 80053; 83735; 84439; 84443; 85025

== ENCOUNTER 2023-10-12 03:52 | Outpatient (CLI) | payer MEDICARE, MEDICAID, SELFPAY ==
[2023-10-12 10:56] LABS: Abs Immature Grans 0.06 10^3/uL (0.0-0.06); Absolute Basophil Count 0.12 10^3/uL (0.0-0.2); Absolute Eosinophil Count 0.05 10^3/uL (0.0-0.7); Absolute Lymphocyte Count 2.42 10^3/uL (1.2-3.4); Absolute Monocyte Count 1.01 10^3/uL (0.1-0.8); Absolute Neutrophil Count 9.86 10^3/uL (1.2-6.7); Basophils % 0.9 %; Eosinophils % 0.4 %; HCT 40.1 % (36.0-46.0); HGB 12.8 g/dL (11.2-15.7); Immature Grans % 0.4 %; Lymphocytes % 17.9 %; MCH 23.6 pg (27.0-33.0); MCHC 31.9 % (32.0-36.0); MCV 74 fL (80-95); MPV 8.4 fL (8.0-11.0); Monocytes % 7.5 %; Neutrophils % 72.9 %; Platelet Count 457 10^3/uL (130-400); RBC 5.42 10^6/uL (3.93-5.22); RDW 28.8 % (11.7-14.6); RDW-SD 72.4 fL; WBC 13.53 10^3/uL (4.4-10.8)
[2023-10-12 11:06] LABS: Anisocytosis 2+; Diff Comment RBC Morph Reviewed; Microcytosis 1+
[2023-10-12 11:19] LABS: ALT 27 U/L (14-59); AST 26 U/L (15-37); Albumin 3.5 g/dL (3.4-5.0); Alkaline Phosphatase 127 U/L (46-116); Anion Gap 10.1 mmol/L (3-11); BUN 11 mg/dL (7-18); Bilirubin, Total 0.23 mg/dL (0.2-1.0); CO2 23.9 mmol/L (21.0-32.0); CREATININE 0.7 mg/dL (0.55-1.02); Calcium 9.8 mg/dL (8.5-10.1); Chloride 93 mmol/L (98-107); Estimated GFR 97.72 (mL/min/1.73m2); FREE T4 0.68 ng/dL (0.76-1.46); Glucose 92 mg/dL (74-106); Magnesium 1.7 mg/dL (1.8-2.4); Potassium 4.2 mmol/L (3.5-5.1); Sodium 127 mmol/L (136-145); TSH 4.09 uIU/Ml (0.36-3.74)
[2023-10-12 11:24] LABS: Iron 29 ug/dL (50-170); Total Iron Binding Capacity 358 ug/dL (250-450); Transferrin Sat 8 % (15-50)
[2023-10-12 11:49] LABS: Ferritin 165 ng/mL (8-252)
== END 2023-10-12 03:53 | disposition home or self-care (01) ==
LOC: LBO 03:52
PROVIDERS: PCP Internal Medicine; Visit Provider Internal Medicine Medical Oncology
DX: C34.32 Malignant neoplasm of lower lobe, left bronchus or lung (principal); Z79.899 Other long term (current) drug therapy
CPT/HCPCS: 36415; 80053; 82728; 83540; 83550; 83735; 84439; 84443; 85025

== ENCOUNTER 2023-11-09 02:34 | Outpatient (CLI) | payer MEDICARE, MEDICAID, SELFPAY ==
[2023-11-09 09:57] LABS: Abs Immature Grans 0.03 10^3/uL (0.0-0.06); Absolute Basophil Count 0.16 10^3/uL (0.0-0.2); Absolute Eosinophil Count 0.19 10^3/uL (0.0-0.7); Absolute Lymphocyte Count 2.16 10^3/uL (1.2-3.4); Absolute Monocyte Count 1.25 10^3/uL (0.1-0.8); Absolute Neutrophil Count 6.29 10^3/uL (1.2-6.7); Anisocytosis 2+; Basophils % 1.6 %; Diff Comment RBC Morph Reviewed; Eosinophils % 1.9 %; HCT 39.4 % (36.0-46.0); HGB 12.5 g/dL (11.2-15.7); Immature Grans % 0.3 %; Lymphocytes % 21.4 %; MCH 24.2 pg (27.0-33.0); MCHC 31.7 % (32.0-36.0); MCV 76 fL (80-95); MPV 8.7 fL (8.0-11.0); Monocytes % 12.4 %; Neutrophils % 62.4 %; Platelet Count 357 10^3/uL (130-400); RBC 5.16 10^6/uL (3.93-5.22); RDW 23.9 % (11.7-14.6); WBC 10.08 10^3/uL (4.4-10.8)
[2023-11-09 09:58] LABS: Poikilocytes 2+
[2023-11-09 10:02] LABS: ALT 25 U/L (14-59); AST 19 U/L (15-37); Albumin 3.2 g/dL (3.4-5.0); Alkaline Phosphatase 122 U/L (46-116); Anion Gap 10.2 mmol/L (3-11); BUN 7 mg/dL (7-18); Bilirubin, Total 0.26 mg/dL (0.2-1.0); CO2 26.8 mmol/L (21.0-32.0); CREATININE 0.8 mg/dL (0.55-1.02); Calcium 9.7 mg/dL (8.5-10.1); Chloride 103 mmol/L (98-107); Estimated GFR 83.26 (mL/min/1.73m2); FREE T4 1.02 ng/dL (0.76-1.46); Glucose 194 mg/dL (74-106); Magnesium 1.8 mg/dL (1.8-2.4); Potassium 3.2 mmol/L (3.5-5.1); Sodium 140 mmol/L (136-145); TSH 3.35 uIU/Ml (0.36-3.74); Total Protein 7.6 g/dL (6.4-8.2)
== END 2023-11-09 02:35 | disposition home or self-care (01) ==
LOC: LBO 02:35
PROVIDERS: PCP Internal Medicine; Visit Provider Internal Medicine Medical Oncology
DX: Z79.899 Other long term (current) drug therapy (principal); C34.32 Malignant neoplasm of lower lobe, left bronchus or lung
CPT/HCPCS: 36415; 80053; 83735; 84439; 84443; 85025

== ENCOUNTER 2023-12-07 03:04 | Outpatient (CLI) | payer MEDICARE, MEDICAID, SELFPAY ==
[2023-12-07 10:45] LABS: Abs Immature Grans 0.07 10^3/uL (0.0-0.06); Absolute Basophil Count 0.14 10^3/uL (0.0-0.2); Absolute Eosinophil Count 0.17 10^3/uL (0.0-0.7); Absolute Monocyte Count 1.43 10^3/uL (0.1-0.8); Basophils % 1.1 %; Eosinophils % 1.3 %; HCT 42.3 % (36.0-46.0); HGB 13.6 g/dL (11.2-15.7); Immature Grans % 0.5 %; Lymphocytes % 23.8 %; MCH 24.5 pg (27.0-33.0); MCHC 32.2 % (32.0-36.0); MCV 76 fL (80-95); MPV 8.5 fL (8.0-11.0); Neutrophils % 62.3 %; Platelet Count 319 10^3/uL (130-400); RBC 5.56 10^6/uL (3.93-5.22); RDW 19.8 % (11.7-14.6); RDW-SD 53.3 fL
[2023-12-07 10:46] LABS: Absolute Lymphocyte Count 3.09 10^3/uL (1.2-3.4)
[2023-12-07 11:18] LABS: ALT 16 U/L (14-59); AST 21 U/L (15-37); Albumin 3.2 g/dL (3.4-5.0); Alkaline Phosphatase 128 U/L (46-116); Anion Gap 5.6 mmol/L (3-11); BUN 10 mg/dL (7-18); Bilirubin, Total 0.32 mg/dL (0.2-1.0); CO2 27.4 mmol/L (21.0-32.0); CREATININE 0.6 mg/dL (0.55-1.02); Chloride 99 mmol/L (98-107); Estimated GFR 101.42 (mL/min/1.73m2); Glucose 90 mg/dL (74-106); Sodium 132 mmol/L (136-145); TSH 3.42 uIU/Ml (0.36-3.74); Total Protein 7.8 g/dL (6.4-8.2)
== END 2023-12-07 03:05 | disposition home or self-care (01) ==
LOC: LBO 03:04
PROVIDERS: PCP Internal Medicine; Visit Provider Internal Medicine Medical Oncology
DX: Z79.899 Other long term (current) drug therapy (principal)
CPT/HCPCS: 36415; 80053; 84439; 84443; 85025

== ENCOUNTER 2024-01-13 02:10 | Outpatient (CLI) | payer MEDICARE, MEDICAID, SELFPAY ==
[2024-01-13 09:17] LABS: Abs Immature Grans 0.08 10^3/uL (0.0-0.06); Absolute Basophil Count 0.14 10^3/uL (0.0-0.2); Absolute Eosinophil Count 0.32 10^3/uL (0.0-0.7); Absolute Monocyte Count 1.58 10^3/uL (0.1-0.8); Basophils % 1.2 %; Eosinophils % 2.7 %; Immature Grans % 0.7 %; Lymphocytes % 25.3 %; MCH 24.6 pg (27.0-33.0); MCHC 31.7 % (32.0-36.0); MCV 78 fL (80-95); MPV 8.9 fL (8.0-11.0); Monocytes % 13.3 %; Neutrophils % 56.8 %; Platelet Count 338 10^3/uL (130-400); RBC 5.29 10^6/uL (3.93-5.22); RDW-SD 54.3 fL; WBC 11.88 10^3/uL (4.4-10.8)
[2024-01-13 09:41] LABS: ALT 20 U/L (14-59); AST 20 U/L (15-37); Alkaline Phosphatase 138 U/L (46-116); Anion Gap 4.8 mmol/L (3-11); BUN 8 mg/dL (7-18); Bilirubin, Total 0.26 mg/dL (0.2-1.0); CO2 28.2 mmol/L (21.0-32.0); CREATININE 0.7 mg/dL (0.55-1.02); Calcium 9.5 mg/dL (8.5-10.1); Chloride 97 mmol/L (98-107); Estimated GFR 97.72 (mL/min/1.73m2); FREE T4 0.82 ng/dL (0.76-1.46); Glucose 122 mg/dL (74-106); Potassium 4.1 mmol/L (3.5-5.1); Sodium 130 mmol/L (136-145); TSH 4.72 uIU/Ml (0.36-3.74); Total Protein 7.4 g/dL (6.4-8.2)
[2024-01-13 09:45] LABS: Absolute Lymphocyte Count 3.01 10^3/uL (1.2-3.4); Absolute Neutrophil Count 6.75 10^3/uL (1.2-6.7)
== END 2024-01-13 02:11 | disposition home or self-care (01) ==
PROVIDERS: PCP Internal Medicine; Referring Provider Nurse Practitioner Family; Visit Provider Nurse Practitioner Family
DX: Z79.899 Other long term (current) drug therapy (principal); C34.32 Malignant neoplasm of lower lobe, left bronchus or lung
CPT/HCPCS: 36415; 80053; 83735; 84439; 84443; 85025

== ENCOUNTER 2024-02-08 02:07 | Outpatient (CLI) | payer MEDICARE, MEDICAID, SELFPAY ==
[2024-02-08 09:21] LABS: Abs Immature Grans 0.04 10^3/uL (0.0-0.06); Absolute Basophil Count 0.14 10^3/uL (0.0-0.2); Absolute Eosinophil Count 0.25 10^3/uL (0.0-0.7); Absolute Neutrophil Count 6.11 10^3/uL (1.2-6.7); Basophils % 1.2 %; Eosinophils % 2.1 %; HCT 39.3 % (36.0-46.0); HGB 12.4 g/dL (11.2-15.7); Immature Grans % 0.3 %; Lymphocytes % 31.3 %; MCH 25.1 pg (27.0-33.0); MCHC 31.6 % (32.0-36.0); MCV 80 fL (80-95); Monocytes % 13.6 %; Neutrophils % 51.5 %; Platelet Count 343 10^3/uL (130-400); RBC 4.94 10^6/uL (3.93-5.22); RDW 21.7 % (11.7-14.6); WBC 11.87 10^3/uL (4.4-10.8)
[2024-02-08 09:24] LABS: Absolute Lymphocyte Count 3.72 10^3/uL (1.2-3.4); Absolute Monocyte Count 1.61 10^3/uL (0.1-0.8)
[2024-02-08 09:44] LABS: ALT 14 U/L (14-59); AST 17 U/L (15-37); Alkaline Phosphatase 139 U/L (46-116); Anion Gap 6.6 mmol/L (3-11); BUN 5 mg/dL (7-18); Bilirubin, Total 0.32 mg/dL (0.2-1.0); CO2 29.4 mmol/L (21.0-32.0); CREATININE 0.7 mg/dL (0.55-1.02); Calcium 9.7 mg/dL (8.5-10.1); Chloride 105 mmol/L (98-107); Estimated GFR 97.72 (mL/min/1.73m2); FREE T4 0.89 ng/dL (0.76-1.46); Glucose 98 mg/dL (74-106); Magnesium 2.2 mg/dL (1.8-2.4); Potassium 3.8 mmol/L (3.5-5.1); Sodium 141 mmol/L (136-145); TSH 4.13 uIU/mL (0.36-3.74); Total Protein 7.5 g/dL (6.4-8.2)
[2024-02-08 09:45] LABS: Anisocytosis 2+; Diff Comment Diff Reviewed
== END 2024-02-08 02:08 | disposition home or self-care (01) ==
PROVIDERS: PCP Internal Medicine; Visit Provider Nurse Practitioner Family
DX: Z79.899 Other long term (current) drug therapy (principal); C34.32 Malignant neoplasm of lower lobe, left bronchus or lung
CPT/HCPCS: 36415; 80053; 83735; 84439; 84443; 85025

== ENCOUNTER 2024-10-10 12:34 | Outpatient (CLI) | payer MEDICARE, MEDICAID, SELFPAY ==
[2024-10-10 10:34] LABS: Abs Immature Grans 0.06 10^3/uL (0.0-0.06); Absolute Lymphocyte Count 3.81 10^3/uL (1.2-3.4); Absolute Monocyte Count 1.34 10^3/uL (0.1-0.8); Basophils % 1.1 %; Eosinophils % 1.1 %; HCT 30.7 % (36.0-46.0); HGB 9.2 g/dL (11.2-15.7); Immature Grans % 0.4 %; MCH 18.8 pg (27.0-33.0); MCV 63 fL (80-95); MPV 9.4 fL (8.0-11.0); Monocytes % 8.8 %; Neutrophils % 63.6 %; Platelet Count 379 10^3/uL (130-400); RDW 21.4 % (11.7-14.6); RDW-SD 45.4 fL; WBC 15.22 10^3/uL (4.4-10.8)
[2024-10-10 10:43] LABS: Absolute Basophil Count 0.17 10^3/uL (0.0-0.2); Absolute Eosinophil Count 0.17 10^3/uL (0.0-0.7); Absolute Neutrophil Count 9.68 10^3/uL (1.2-6.7)
[2024-10-10 10:51] LABS: Anisocytosis 2+; Diff Comment RBC Morph Reviewed; Hypochromasia 2+; Microcytosis 2+; Poikilocytes 2+
[2024-10-10 11:32] LABS: ALT 20 U/L (14-59); AST 19 U/L (15-37); Albumin 3.3 g/dL (3.4-5.0); Alkaline Phosphatase 144 U/L (46-116); Anion Gap 8.9 mmol/L (3-11); BUN 8 mg/dL (7-18); Bilirubin, Total 0.4 mg/dL (0.2-1.0); CO2 25.1 mmol/L (21.0-32.0); CREATININE 0.5 mg/dL (0.55-1.02); Calcium 9.4 mg/dL (8.5-10.1); Chloride 96 mmol/L (98-107); Estimated GFR 105.32 (mL/min/1.73m2); FREE T4 0.87 ng/dL (0.76-1.46); Glucose 80 mg/dL (74-106); Potassium 4.3 mmol/L (3.5-5.1); Sodium 130 mmol/L (136-145); TSH 6.45 uIU/mL (0.36-3.74); Total Protein 7.8 g/dL (6.4-8.2)
== END 2024-10-10 12:35 | disposition home or self-care (01) ==
LOC: LBO 12:43
PROVIDERS: PCP Internal Medicine; Visit Provider Nurse Practitioner Family
DX: Z79.899 Other long term (current) drug therapy (principal); C34.32 Malignant neoplasm of lower lobe, left bronchus or lung
CPT/HCPCS: 36415; 80053; 83735; 84439; 84443; 85025

== ENCOUNTER 2025-02-13 10:12 | Outpatient (CLI) | payer MEDICARE, MEDICAID, SELFPAY ==
[2025-02-13 10:13] LABS: Abs Immature Grans 0.03 10^3/uL (0.0-0.06); HCT 42.7 % (36.0-46.0); HGB 12.8 g/dL (11.2-15.7); Immature Grans % 0.3 %; MCH 22.0 pg (27.0-33.0); MCHC 30.0 % (32.0-36.0); MCV 73 fL (80-95); Platelet Count 287 10^3/uL (130-400); RBC 5.83 10^6/uL (3.93-5.22); RDW 31.8 % (11.7-14.6); RDW-SD 80.3 fL; WBC 9.74 10^3/uL (4.4-10.8)
[2025-02-13 10:28] LABS: ALT 21 U/L (14-59); AST 19 U/L (15-37); Albumin 2.8 g/dL (3.4-5.0); Alkaline Phosphatase 122 U/L (46-116); Anion Gap 6.7 mmol/L (3-11); BUN 10 mg/dL (7-18); Bilirubin, Total 0.3 mg/dL (0.2-1.0); CO2 27.3 mmol/L (21.0-32.0); Calcium 9.4 mg/dL (8.5-10.1); Chloride 101 mmol/L (98-107); Glucose 91 mg/dL (74-106); Potassium 3.9 mmol/L (3.5-5.1); Sodium 135 mmol/L (136-145); TSH 1.57 uIU/mL (0.36-3.74); Total Protein 7.3 g/dL (6.4-8.2)
[2025-02-13 10:49] LABS: Anisocytosis 3+; Howell-Jolly Bodies 1+; Hypochromasia 1+; Macrocytosis 1+; Microcytosis 2+; Polychromasia Present; Schistocytes 1+
[2025-02-13 10:50] LABS: Target Cells 2+
== END 2025-02-13 10:13 | disposition home or self-care (01) ==
LOC: LBO 10:12
PROVIDERS: PCP Internal Medicine; Visit Provider Internal Medicine Medical Oncology
DX: C34.32 Malignant neoplasm of lower lobe, left bronchus or lung (principal)
CPT/HCPCS: 36415; 80053; 84439; 84443; 85025